=== PATIENT | female | born 1980 | race Caucasian/White ===

== ENCOUNTER 2016-11-16 03:43 | Emergency (ER) | payer OTHER ==
[~2016-11-16] VITALS: Ht 167.6 cm; Wt 62.8 kg
[2016-11-16] MEDS ORDERED: SUMATRIPTAN 6MG/0.5ML SQ ONE ×2 (04:14→04:30)
[2016-11-16] MEDS ORDERED: KETOROLAC 30 MG/1 ML ONE (04:14)
[2016-11-16] MEDS ORDERED: DIPHENHYDRAMINE 50 MG/ML, 1ML ONE (04:14)
[2016-11-16] MEDS ORDERED: PROCHLORPERAZINE 5 MG/ML, 2ML ONE (04:14)
[2016-11-16] MEDS ORDERED: ONDANSETRON 2MG/ML, 2ML ONE (04:14)
[2016-11-16] MEDS ORDERED: SODIUM CHLORIDE FLUSH 10ML SYR IVF ONE (04:30)
[2016-11-16] MEDS ORDERED: ONDANSETRON 2MG/ML, 2ML IVPush ONE (04:30)
[2016-11-16] MEDS ORDERED: DIPHENHYDRAMINE 50 MG/ML, 1ML IVPush ONE (04:30)
[2016-11-16] MEDS ORDERED: PROCHLORPERAZINE 5 MG/ML, 2ML IVPush ONE (04:30)
[2016-11-16] MEDS ORDERED: KETOROLAC 30 MG/1 ML IVPush ONE (04:30)
[2016-11-16] MEDS ORDERED: SODIUM CHLORIDE 0.9% 1,000ML IVBOLUS ONE (04:30)
[2016-11-16 05:37] VITALS: BP 108/68
== END 2016-11-16 05:40 | disposition home or self-care (01) ==
LOC: ED 05:34
DX: G43.019 Migraine without aura, intractable, without status migrainosus (principal); R11.2 Nausea with vomiting, unspecified; Z88.8 Allergy status to other drugs, medicaments and biological substances
CPT/HCPCS: 70450; 96361; 96372; 96374; 96375; 99284; J0780; J1200; J1885; J2405; J3030; J7030